=== PATIENT | female | born 1990 | race Caucasian/White ===

== ENCOUNTER 2023-01-10 11:35 | Inpatient (IN) | payer MEDICAID, SELFPAY ==
[2023-01-10 11:37] VITALS: BP 127/90; PULSE 93; RESP 16; TEMP 36.3; O2SAT 100; BMI 25.5
--- NOTE | 2023-01-10 12:02 | RAD_ITS ---
STUDY: X-RAY - LEFT WRIST REASON FOR EXAM: Female, 32 years old. FB TECHNIQUE: 3 view(s) of the wrist were obtained. COMPARISON: None. FINDINGS: Normal visualized distal radius and ulna. Normal radiocarpal articulation. Normal distal radioulnar articulation. Normal carpal bones. Normal carpal articulations. Normal carpometacarpal articulation of the thumb. Normal second through fifth carpometacarpal articulations. Normal visualized metacarpal bones. The soft tissue structures are unremarkable. There is no demonstrated acute fracture. RAD/Wrist min 3 Views IMPRESSION: Normal x-ray examination of the wrist. Electronically Signed: Chaitanya Costello MD at 13:02 EDT ,
--- NOTE | 2023-01-10 12:06 | EDS_ITS ---
HPI History of Present Illness Chief Complaint: Substance Abuse Narrative Narrative: Patient is a 32-year-old female who presenting to the ER wanting detox for opiates/fentanyl. Patient has been on opiates for over 10 years. Patient initially started taking opiates for pain, then it has pursued into recreation and dependence. Patient states that she snorts and injects fentanyl. Last use was yesterday morning. Patient feels like she is going through withdrawal with nausea, bone pain, chills, piloerection, dry heaves and diarrhea. Patient is not suicidal homicidal. Patient lives at home with her parents and daughter who is a 12-year-old. Patient decided that today was the day that she wanted to get clean again. Patient has been to rehab one of the time at [facility]. patient is not in trouble with the law. Patient not suicidal homicidal. Patient states she averages half a gram of fentanyl a day. Patient also has a small abscess to the left medial forearm and also redness and swelling to the left medial wrist. Patient is right-hand dominant. Patient was dropped off in the ER today. She has mild headache, no neck pain. No chest pain or shortness of breath. Positive nausea with dry heaving, positive diarrhea. Patient states that she is not , she is starting her menses right now. Patient has no other rashes or lesions beside the track rob to her arms and the a forementioned left forearm abscess and left wrist redness. Patient denies any illicit drug use. Patient does smoke cigarettes, half a pack if not greater day. No alcohol use. Patient does have hepatitis C. Patient has not had any previous treatment for hepatitis C in the past. [facility] Medical History (Updated 01/10/23 @ 14:[address] Thang Angel DO) Opiate addiction Home Medications NK 01/10/23 [History Last Taken Unknown] Allergy/AdvReac Type Severity Reaction Status Date / Time No Known Allergies Allergy Verified 01/10/23 11:44 Social History Smoking Status: Current every day smoker tobacco type: cigarettes ROS ROS ED ROS Narrative REVIEW OF SYSTEMS: Unless otherwise stated in this report the patient's positive and negative responses for review of systems for constitutional, eyes, ENT, cardiovascular, respiratory, gastrointestinal, neurological, , musculoskeletal, and integument systems and related systems to the presenting problem are either stated in the history of present illness or were not pertinent or were negative for the symptoms and/or complaints related to the presenting medical problem. EXAM Physical Exam Narrative Exam Narrative: Vital signs reviewed and patient is not hypoxic. General: The patient appears well and in no apparent distress. Patient is resting comfortably on cart. Not toxic, lethargic, or listless. Skin: Warm, dry, no pallor noted. There is no rash noted. Patient has a 2.5 x 2 firm nodule/abscess, indurated, not fluctuant to the left medial forearm, approximately 2 cm deep. Mild to moderate tenderness palpation to the area. Patient also has diffuse mild erythema to the medial aspect of left wrist, no palpable abscess, no palpable foreign body. Patient does have mild to moderate pain with flexion and extension abduction abduction of the left wrist. Patient has multiple track rob to her forearms and hands. No other signs of secondary signs of infection. Head: Normocephalic, atraumatic Eye: Normal conjunctiva, no drainage, EOMI. PERRL. Ears, Nose, Mouth, and Throat: oral mucosa is moist. Nares patent. Mouth without vesicles. Cardiovascular: Regular Rate and Rhythm, no murmurs, gallops, or rubs Respiratory: Patient is in no distress, no accessory muscle use, lungs are clear to auscultation, no wheezing, rales or rhonchi Back: non-tender, no CVA tenderness bilaterally to percussion. NO CTLS midline or paraspinal tenderness to palpation. GI: Soft, no tenderness to palpation, no masses appreciated. No rebound, guarding, or rigidity noted. Musculoskeletal: The patient has full range of motion of all extremities and joints with no difficulty. Patient has no motor, no sensory deficits. See skin exam. Neurological: A&O x4, normal speech, no focal neurological deficits. Psychiatric: Cooperative Const Vital Signs: 01/10/23 11:37 Temperature 97.3 F L Temperature Source Temporal Pulse Rate 93 Respiratory Rate 16 Blood Pressure 127/90 H Blood Pressure Mean 102 Pulse Ox 100 Oxygen Delivery Method Room Air MDM MDM MDM Narrative Medical decision making narrative: Patient will be admitted for detox for opiates. Patient only has ecstasy noted in patient's urine drug tox cream. Alcohol negative. Patient potassium was 3.3, she was given oral potassium. Patient's nausea has improved with IV Zofran. Patient has been given 1 L of IV fluid. Patient also been given clonidine and Librium. Patient was given Ancef secondary to left wrist early cellulitis and also left forearm abscess. Patient will be admitted to hospitalist for detox. Patient is not suicidal homicidal. Patient is currently not working. Patient lives at home with her parents and her 12-year-old daughter. Patient does have a history of hepatitis C. Lab Data Attestation: I reviewed the patient's lab results. Labs: Laboratory Results - last 24 hr 01/10/23 01/10/23 12:25 12:40 Sodium 138 Potassium 3.3 L Chloride 107 Carbon Dioxide 27.0 Anion Gap 4 L BUN 13 Creatinine 0.61 Estim Creat Clear Calc 95.10 Est GFR (MDRD) Af Amer 146 Est GFR (MDRD) Non-Af 120 BUN/Creatinine Ratio 21.3 H Glucose 104 Calcium 9.1 Total Bilirubin 0.50 AST 31 ALT 34 Alkaline Phosphatase 125 H Total Protein 8.5 H Albumin 3.7 Globulin 4.8 H Albumin/Globulin Ratio 0.8 L Serum , Qual NEGATIVE Urine Opiates Screen NEGATIVE Urine Methadone Screen NEGATIVE Ur Barbiturates Screen NEGATIVE Ur Phencyclidine Scrn NEGATIVE Ur Amphetamines Screen NEGATIVE MDMA (Ecstasy) Screen POSITIVE H U Benzodiazepines Scrn NEGATIVE Urine Cocaine Screen NEGATIVE U Cannabinoids Screen NEGATIVE Ur Drug Screen Comment Ethyl Alcohol < 3.0 Radiography X-Ray: Read by ED Physician (Patient is left wrist x-ray and left forearm x-ray showed no acute fracture, dislocation or acute abnormality. No foreign body noted. No signs of osteomyelitis. No free air or gas noted) Diagnostic Testing: Clinical Impression(s) from Imaging Studies Wrist X-Ray 01/10/23 12:02 IMPRESSION: Normal x-ray examination of the wrist. Electronically Signed: Chaitanya Costello MD at 13:02 EDT , Forearm X-Ray 01/10/23 12:25 IMPRESSION: Normal x-ray examination of the radius and ulna. Electronically Signed: Chaitanya Costello MD at 13:26 EDT , Discharge Plan Dx/Rx/DC Orders Clinical Impression: Cellulitis of left wrist, Opiate dependence, continuous, Acute pain of left wrist, Abscess of forearm, left, Hypokalemia Disposition Disposition: Acute Care [facility]
--- NOTE | 2023-01-10 12:10 | ED.RN ---
spoke with provider regarding pt being here for fentanyl abuse and the order for IV. this rn has concerns pt will leave with the iv in. provider said to start iv, if she leaves notify security. provider aware that we prefer to not start iv's on opiate abuse. this rn requested oral atb's and provider denied.
--- NOTE | 2023-01-10 12:25 | RAD_ITS ---
STUDY: X-RAY - LEFT RADIUS AND ULNA REASON FOR EXAM: Female, 32 years old. FB TECHNIQUE: 2 view(s) of the forearm. COMPARISON: None. FINDINGS: There is no demonstrated soft tissue swelling. Normal visualized radius. Normal visualized ulna. There is no demonstrated acute fracture. There is no demonstrated destructive osseous lesion. No radiopaque foreign body is seen. RAD/Forearm 2 Views IMPRESSION: Normal x-ray examination of the radius and ulna. Electronically Signed: Chaitanya Costello MD at 13:26 EDT ,
[2023-01-10] MEDS: cloNIDine HCl 0.1 MG Tablet PO ×2 (12:26→17:41)
[2023-01-10] MEDS: 0.9% Normal Saline 1,000 ML 999 ML IV (12:44)
[2023-01-10] MEDS: chlordiazePOXIDE 25 MG Capsule PO (12:45)
[2023-01-10] MEDS: Ondansetron 4 MG/2 ML Vial IV (12:45)
[2023-01-10] MEDS: Cefazolin 1 GM/50 ML BAG IV (12:45)
[2023-01-10 12:59] LABS: Amphetamine Urine VISTA NEGATIVE (<1000 ng/mL); Barbiturate Urine VISTA NEGATIVE (< 200 ng/mL); Benzodiazepine Urine VISTA NEGATIVE (< 200 ng/mL); Cocaine Urine VISTA NEGATIVE (< 300 ng/mL); Ecstacy Urine VISTA POSITIVE (< 500 ng/mL); Methadone Urine VISTA NEGATIVE (< 300 ng/mL); PCP Urine VISTA NEGATIVE (< 25 ng/mL); THC Urine VISTA NEGATIVE (< 50 ng/mL); Vista UDS pH Range 5
[2023-01-10 13:05] LABS: ALB/GLOB Ratio 0.8 RATIO (0.9-2.4); AST(SGOT) 31 U/L (15-37); Alanine Aminotransfer ALT/SGPT 34 U/L (13-56); Albumin, Serum 3.7 g/dL (3.2-5.0); Alkaline Phosphatase 125 U/L (45-117); Anion Gap 4 (5-15); BUN 13 mg/dL (7-18); BUN/Creat Ratio 21.3 RATIO (10-20); Calcium,Total 9.1 mg/dL (8.5-10.1); Chloride 107 mmol/L (98-107); Creatinine, Serum 0.61 mg/dL (0.55-1.02); EST Glomerular Filtration Rate 120 mL/min (>60); Est Glom Filt Rate - Afr Amer 146 mL/min (>60); Globulin 4.8 g/dL (2.2-4.2); Glucose 104 mg/dL (74-106); Potassium 3.3 mmol/L (3.5-5.1); Protein, Total 8.5 g/dL (6.4-8.2); Sodium Level 138 mmol/L (136-145)
[2023-01-10 13:08] LABS: Internal QC Validated? YES +Cl - CLEAR BKGD; Pregnancy, Serum, hCG Quali. NEGATIVE Negative
[2023-01-10 13:13] LABS: Alcohol, Blood (Medical)-Serum < 3.0 mg/dL
[2023-01-10] MEDS: Potassium Chloride Oral Tablet 20 MEQ 40 MEQ PO (14:01)
[2023-01-10 14:02] VITALS: BP 104/60; PULSE 59; RESP 16; TEMP 36.7; O2SAT 99
--- NOTE | 2023-01-10 14:14 | ED.RN ---
THIS RN TALKS TO DR SOUZA. IV TO BE PULLED PRIOR TO ADMISSION UPSTAIRS PER HOSPITAL POLICY AND PHYSICIAN REQUEST.
[2023-01-10 14:45] VITALS: BMI 25.4
[2023-01-10 15:30] VITALS: BP 100/65; PULSE 91; RESP 18; TEMP 36.7; O2SAT 100
[2023-01-10] MEDS: Buprenorphine HCl 2 MG TAB.SUBL SL ×2 (15:42→23:58)
--- NOTE | 2023-01-10 15:47 | PCM.HP.STD ---
HPI - General General Date of Admission: 01/10/23 HPI Narrative TRAV ANDINO, is a 32 F who presents to the hospital requesting detox from fentanyl abuse. She injects and snorts. She initially started using opiates for pain and then it transitioned into abuse. Her last use was yesterday morning, and she uses about a gram a day, and feels like she is already started going through withdrawal with nausea and dry heaves and diarrhea. He has been through detox once before in [place]. She is also noticed abscess formation on her left forearm and her left wrist from injection sites. These were x-rayed in the ER and there does not appear to be foreign bodies present. [facility] Medical History (Updated 01/10/23 @ 14:[address] Thang Angel DO) Opiate addiction Home Medications NK 01/10/23 [History Last Taken Unknown] Allergy/AdvReac Type Severity Reaction Status Date / Time No Known Allergies Allergy Verified 01/10/23 11:44 Family History unable to obtain no significant family history Surgical History unable to obtain no surgical history Social History Smoking Status: Current every day smoker tobacco type: cigarettes ROS Constitutional Constitutional: Reports chills; Denies fatigue, fever(s) or malaise Eyes Eyes: Denies blurry vision ENT HEENT: Denies headache(s) or nasal discharge Cardiovascular Cardiovascular: Denies chest pain, dyspnea on exertion or syncope Respiratory/Chest Respiratory/Chest: Denies cough, shortness of breath at rest or shortness of breath with exertion Gastrointestinal Gastrointestinal: Reports diarrhea and nausea; Denies constipation or vomiting Genitourinary Genitourinary: Denies dysuria Neurologic Neurologic: Denies focal weakness, numbness or tremor(s) Psychiatric Psychiatric: Denies anxiety or depression Vital Signs Vital Signs Vital Signs: 01/10/23 11:37 01/10/23 14:02 01/10/23 15:30 Temperature 97.3 F L 98.0 F 98.1 F Temperature Source Temporal Temporal Temporal Pulse Rate 93 59 L 91 Respiratory Rate 16 16 18 Blood Pressure 127/90 H 104/60 100/65 Blood Pressure Mean 102 74 76 Blood Pressure Source Monitor Blood Pressure Position Semi-Fowlers Blood Pressure Location Left Arm Pulse Ox 100 99 100 Oxygen Delivery Method Room Air Room Air Room Air Weight Weight: 130 lb Body Mass Index (BMI) 25.4 Physical Exam Narrative General: Alert, Oriented x3, Cooperative, restless, diaphoretic HEENT: Atraumatic, PERRLA, EOMI, Normocephalic Oral: Moist Mucosa Neck: Supple, No JVD Lungs: Clear to auscultation, Normal air movement, No rhonchi, No wheeze, No rales Cardiovascular: Regular rate, Regular Rhythm, Normal S1, Normal S2, No murmurs Abdomen: Soft, Non Tender, Non-Distended, No Hepato-splenomegaly Extremities: No edema, Capillary Refill Less than 3 Seconds Skin: Left medial forearm redness, no fluctuance but indurated Musculoskeletal: No Tenderness to Palpation of Joints or Extremities Neurological: Tremor, motor Exam 5/5 strength throughout, Sensory exam intact to light touch and pain Psych/Mental Status: Agitated Results Lab / Micro Data 01/10/23 12:40 Labs: Laboratory Results - last 24 hr 01/10/23 12:25: Urine Opiates Screen NEGATIVE, Urine Methadone Screen NEGATIVE, Ur Barbiturates Screen NEGATIVE, Ur Phencyclidine Scrn NEGATIVE, Ur Amphetamines Screen NEGATIVE, MDMA (Ecstasy) Screen POSITIVE H, U Benzodiazepines Scrn NEGATIVE, Urine Cocaine Screen NEGATIVE, U Cannabinoids Screen NEGATIVE, Ur Drug Screen Comment 01/10/23 12:40: Sodium 138, Potassium 3.3 L, Chloride 107, Carbon Dioxide 27.0, Anion Gap 4 L, BUN 13, Creatinine 0.61, Estim Creat Clear Calc 95.10, Est GFR (MDRD) Af Amer 146, Est GFR (MDRD) Non-Af 120, BUN/Creatinine Ratio 21.3 H, Glucose 104, Calcium 9.1, Total Bilirubin 0.50, AST 31, ALT 34, Alkaline Phosphatase 125 H, Total Protein 8.5 H, Albumin 3.7, Globulin 4.8 H, Albumin/Globulin Ratio 0.8 L, Serum , Qual NEGATIVE, Ethyl Alcohol < 3.0 Radiology Impression Wrist X-Ray 01/10/23 12:02 IMPRESSION: Normal x-ray examination of the wrist. Electronically Signed: Chaitanya Costello MD at 13:02 EDT Reading Location ID and State: [facility] / [place] , Service support , Forearm X-Ray 01/10/23 12:25 IMPRESSION: Normal x-ray examination of the radius and ulna. Electronically Signed: Chaitanya Costello MD at 13:26 EDT , Assessment & Plan Assessment/Plan (1) Abscess of forearm, left: (2) Opiate dependence, continuous: PLAN: Plan 1. Opiate withdrawal/left forearm abscess ? Continue with the opiate withdrawal protocol ? Other follow-up with 180 as an outpatient ? We will transition to doxycycline for the abscess and the localized cellulitis will obtain a wound culture if able DVT: Ambulation Charges/Coding Visit Charges Inpatient E&M: 52095 Init Hosp L2
[2023-01-10] MEDS: hydrOXYzine PAM 25 MG Capsule 50 MG PO (17:41)
[2023-01-10] MEDS: Gabapentin 300 MG Capsule PO (17:41)
[2023-01-10] MEDS: Ondansetron 8 MG Tablet PO (17:41)
[2023-01-10 17:59] VITALS: BP 130/88; PULSE 84; RESP 20; TEMP 36.7; O2SAT 100
[2023-01-10 23:45] VITALS: BP 107/59; PULSE 48; RESP 14; TEMP 36.6; O2SAT 97
[2023-01-10] MEDS: Doxycycline 100 MG CAPSULE PO (23:58)
[2023-01-11] MEDS: traZODone 100 MG Tablet PO
--- NOTE | 2023-01-11 06:51 | PCM.PN.HOSP ---
Reason for Visit Reason for Visit: Diagnoses Opioid dependence, uncomplicated (01/10/23) Cutaneous abscess of left upper limb (01/10/23) Subjective Subjective Patient with no acute events overnight per self and per nursing report. She denies any marked withdrawal symptoms still. Discussed polysubstance abuse and importance of also testing syphilis given this is active in the community and she was amenable. Patient denies any further drainage from her forearm and notes that there has not been some for several days. Patient denies fevers, chills, nausea, emesis, abdominal pain, chest pain or dyspnea. Objective Data Objective Data Vital Signs: Vital Signs Temp Pulse Resp BP Pulse Ox O2 Del Method 98 F 48 L 14 107/59 L 97 Room Air 01/10/23 23:45 01/10/23 23:45 01/10/23 23:45 01/10/23 23:45 01/10/23 23:45 01/11/23 04:00 Oxygen Delivery Method Room Air Weight: 130 lb Body Mass Index (BMI) 25.4 Intake & Output: Intake and Output for Last 24 Hours 01/09/23 01/10/23 01/11/23 23:59 23:59 23:59 Intake Total 1250 / 1350 100 / 100 Balance 1250 / 1350 100 / 100 Lab / Micro Data 01/11/23 10:40 01/11/23 10:40 Labs: Laboratory Results - last 24 hr 01/10/23 12:25: Urine Opiates Screen NEGATIVE, Urine Methadone Screen NEGATIVE, Ur Barbiturates Screen NEGATIVE, Ur Phencyclidine Scrn NEGATIVE, Ur Amphetamines Screen NEGATIVE, MDMA (Ecstasy) Screen POSITIVE H, U Benzodiazepines Scrn NEGATIVE, Urine Cocaine Screen NEGATIVE, U Cannabinoids Screen NEGATIVE, Ur Drug Screen Comment 01/10/23 12:40: Sodium 138, Potassium 3.3 L, Chloride 107, Carbon Dioxide 27.0, Anion Gap 4 L, BUN 13, Creatinine 0.61, Estim Creat Clear Calc 95.10, Est GFR (MDRD) Af Amer 146, Est GFR (MDRD) Non-Af 120, BUN/Creatinine Ratio 21.3 H, Glucose 104, Calcium 9.1, Total Bilirubin 0.50, AST 31, ALT 34, Alkaline Phosphatase 125 H, Total Protein 8.5 H, Albumin 3.7, Globulin 4.8 H, Albumin/Globulin Ratio 0.8 L, Serum , Qual NEGATIVE, Ethyl Alcohol < 3.0 Radiography Diagnostic Testing: Radiology Impression Wrist X-Ray 01/10/23 12:02 IMPRESSION: Normal x-ray examination of the wrist. Electronically Signed: Chaitanya Costello MD at 13:02 EDT Reading Location ID and State: [facility] / [place] , Service support , Forearm X-Ray 01/10/23 12:25 IMPRESSION: Normal x-ray examination of the radius and ulna. Electronically Signed: Chaitanya Costello MD at 13:26 EDT , Physical Exam Narrative Physical Examination: General: Awake, alert, oriented x 3 and cooperative, laying in the medical surgical bed, fatigued otherwise no acute distress. Skin: Normal color, normal turgor, no icterus, no cyanosis except various staged track rob and ecchymotic change to the extremities especially, L forearm with no obvious draining abscess, palpable small nonpainful mobile collection, possibly lipoma. HEENT: AT/NC, EOMI, PERRLA, poor dentition, mildly dry MM. Lungs: Mildly diminished, greater bases, proper effort, no rales, ronchi or wheezing. Heart: Mildly bradycardic with regular rhythm; no gallop, rub audible. Abdomen: Soft, NTTP, ND, mildly hyperactive BS. Extremities: No cyanosis, clubbing, or edema, L forearm with no obvious draining abscess, palpable small nonpainful mobile collection, possibly lipoma.. Neurological: Patient awake, alert, oriented as noted, cognitive function intact; pupils equally reactive to light and accommodation, cranial nerves II-XII grossly normal, moving all 4 extremities, no focal deficits, strength mildly decreased secondary to likely medications. Psychiatric: Affect appears flat, fatigued, no acute evidence of depressive or anxiety feelings. Assessment & Plan Assessment/Plan (1) Opiate withdrawal: PLAN: Plan The patient is a 32 y/o F w/ PMHx: Polysubstance abuse (Opiates, IV and snorted), Tobacco use who presents [facility] ED on 01/10/23 with acute opiate withdrawal. #1. Acute Opiate Withdrawal: Admitted to medical surgical floor, initiated and maintained on protocol with tapering course of Subutex, as needed tylenol, ibuprofen, bowel regimen, gabapentin, Bentyl, Vistaril, methocarbamol, clonidine, PRN nightly trazodone for insomnia, IV fluids, IV antiemetics. Once patient clinically improved and completion of taper nearing will plan consultation with case management for transition to next level of rehabilitation care. #2. Forearm abscess secondary to IV drug abuse: Will maintain on oral doxy, low threshold to add concurrent keflex, evaluation with no obvious drainage at this point and from sensation on evaluation suspect may be a small lipoma present in that region as well, continue affected extremity elevation above heart when seated and in bed, monitor erythema outline with VS checks. #3. Polysubstance Abuse, IVDA Hx: Patient currently not candidate for hep C treatment currently as needs to be clean, sober x 6 months, documented attendance NA or AA meetings, counseling and ongoing negative drug screens. HIV nonreactive, syphilis nonreactive, pending hepatitis panel. #4. Tobacco Abuse: Encouraged cessation, inpatient consultation per RT, NR if desired. #5. Hypokalemia: Admission K+ 3.3, magnesium level 2.1, supplementation given and repeat 01/11/2023 potassium 3.6. #6. DVT prophylaxis: Low risk, encourage ambulation. Charges/Coding Visit Charges Inpatient E&M: 24997 Subs Hosp L2
[2023-01-11 08:00] VITALS: BP 102/64; PULSE 55; RESP 18; TEMP 36.3; O2SAT 97
[2023-01-11] MEDS: Buprenorphine HCl 2 MG TAB.SUBL SL ×3 (08:00→23:00)
[2023-01-11 09:29] LABS: HIV - WCH Non-Reactive (Nonreactive)
[2023-01-11] MEDS: Doxycycline 100 MG CAPSULE PO ×2 (10:15→22:59)
[2023-01-11 10:49] LABS: Absolute Lymphocyte Count 1.48 X10^3/uL (0.83-4.51); Absolute Neutrophil Count 3.4 X10^3/uL (2.0-7.7); Basophil# 0.04 X10^3/uL; Basophil% 0.7 % (0-1); Eosinophil# 0.06 X10^3/uL; Eosinophils% 1.1 % (0-5); Hemoglobin 13.6 g/dL (12.0-15.0); Lymphocyte # 1.48 X10^3/ul (0.83-4.51); Lymphocyte % 27.6 % (19-41); Mean Corp Hgb Conc 33.2 g/dL (32-36); Mean Corpuscular Volume 84.5 fL (81-99); Mean Platelet Vol. 9.8 fl (6.2-12.0); Monocyte# 0.41 X10^3/uL; Monocyte% 7.6 % (0-10); NRBC Flagged by Analyzer 0 % (0-5); Neutrophil # 3.35 X10^3/uL (2.7-7.7); Neutrophil % 62.6 % (47-70); Platelet Count 203 K/mm3 (150-450); RBC Distribution Width CV 12.7 % (11.6-14.6); RBC Distribution Width SD 38.9 fl (35.1-43.9); Red Blood Count 4.85 M/mm3 (4.2-5.4); White Blood Count 5.4 K/mm3 (4.4-11.0)
[2023-01-11 11:36] LABS: Anion Gap 7 (5-15); BUN 12 mg/dL (7-18); BUN/Creat Ratio 22.5 RATIO (10-20); Calcium,Total 8.8 mg/dL (8.5-10.1); Chloride 109 mmol/L (98-107); Creatinine, Serum 0.53 mg/dL (0.55-1.02); EST Glomerular Filtration Rate 140 mL/min (>60); Est Glom Filt Rate - Afr Amer 170 mL/min (>60); Estimated Creatinine Clearance 109.46 ml/min; Glucose 115 mg/dL (74-106); Magnesium 2.1 mg/dL (1.6-2.6); Potassium 3.6 mmol/L (3.5-5.1); Sodium Level 138 mmol/L (136-145); Syphilis Antibodies Non-reactive
--- NOTE | 2023-01-11 11:46 | WOUNDNOTE ---
skin photo: left arm
--- NOTE | 2023-01-11 11:47 | WOUNDNOTE ---
was asked to see patient for abscess to the left arm. patient is a known IV drug user. patient does have a small red, indurated area to the left forearm. there is no surrounding erythema or streaking noted. skin is intact. no need for wound care at this time. see skin photo.
--- NOTE | 2023-01-11 12:00 | ADDICTION ---
This worker met with patient. Pt was feeling unwell. Pt discussed treatment options post d/c. Pt was not interested in any of the options tw listed however it may be due to the way she was feeling. Assessments were completed. Will go back and discuss options further tomorrow.
[2023-01-11 15:00] VITALS: BP 111/67; PULSE 67; RESP 16; TEMP 36.9; O2SAT 97
[2023-01-11 20:08] VITALS: BP 104/65; PULSE 80; RESP 16; TEMP 36.5; O2SAT 97
[2023-01-11 23:04] VITALS: BP 119/79; PULSE 56; RESP 16; TEMP 36.6; O2SAT 98
[2023-01-12 05:55] VITALS: BP 120/72; PULSE 61; RESP 16; TEMP 36.8; O2SAT 98
--- NOTE | 2023-01-12 06:29 | PCM.PN.HOSP ---
Reason for Visit Reason for Visit: Diagnoses Opioid dependence, uncomplicated (01/10/23) Opioid use, unspecified with withdrawal (01/10/23) Cutaneous abscess of left upper limb (01/10/23) Subjective Subjective Patient with no acute events overnight per self and per nursing report. Discussed her current lab reports which included negative syphilis and negative HIV testing but still awaiting hepatitis panel. Patient denies any further marked withdrawal symptoms. Patient denies fevers, chills, nausea, emesis, abdominal pain, chest pain or dyspnea. Objective Data Objective Data Vital Signs: Vital Signs Temp Pulse Resp BP Pulse Ox O2 Del Method 98.2 F 61 16 120/72 98 Room Air 01/12/23 05:55 01/12/23 05:55 01/12/23 05:55 01/12/23 05:55 01/12/23 05:55 01/12/23 05:55 Oxygen Delivery Method Room Air Weight: 130 lb Body Mass Index (BMI) 25.4 Intake & Output: Intake and Output for Last 24 Hours 01/10/23 01/11/23 01/12/23 23:59 23:59 23:59 Intake Total 1250 / 1350 100 / 300 400 / 400 Balance 1250 / 1350 100 / 300 400 / 400 Lab / Micro Data 01/11/23 10:40 01/11/23 10:40 Labs: Laboratory Results - last 24 hr 01/10/23 21:16: HIV 1&2 Antibody Non-Reactive 01/11/23 10:40: WBC 5.4, RBC 4.85, Hgb 13.6, Hct 41.0, MCV 84.5, MCH 28.0, MCHC 33.2, RDW Std Deviation 38.9, RDW Coeff of Josie 12.7, Plt Count 203, MPV 9.8, Immature Gran % (Auto) 0.400, Neut % (Auto) 62.6, Lymph % (Auto) 27.6, Jennings % (Auto) 7.6, Eos % (Auto) 1.1, Baso % (Auto) 0.7, Absolute Neuts (auto) 3.4, Absolute Lymphs (auto) 1.48, Nucleated RBC % 0, Sodium 138, Potassium 3.6, Chloride 109 H, Carbon Dioxide 22.0, Anion Gap 7, BUN 12, Creatinine 0.53 L, Estim Creat Clear Calc 109.46, Est GFR (MDRD) Af Amer 170, Est GFR (MDRD) Non-Af 140, BUN/Creatinine Ratio 22.5 H, Glucose 115 H, Calcium 8.8, Magnesium 2.1, Syphilis Total Ab Non-reactive Physical Exam Narrative Physical Examination: General: Awake, alert, oriented x 3 and cooperative, laying in the medical surgical bed, laying on her side, fatigued, no withdrawal complaints. Skin: Normal color, normal turgor, no icterus, no cyanosis except various staged track rob and ecchymotic change primarily to extremities, L forearm with no obvious draining abscess, palpable small nonpainful mobile collection, possibly lipoma. HEENT: AT/NC, EOMI, PERRLA, poor dentition, MMM. Lungs: Mildly diminished, greater bases, proper effort, no rales, ronchi or wheezing. Heart: Bradycardic with regular rhythm; no gallop, rub audible. Abdomen: Soft, NTTP, ND, normal BS. Extremities: No cyanosis, clubbing, or edema, L forearm with no obvious draining abscess, palpable small nonpainful mobile collection, possibly lipoma. Neurological: Patient awake, alert, oriented as noted, cognitive function intact; pupils equally reactive to light and accommodation, cranial nerves grossly normal, moving all 4 extremities, no focal deficits, strength normalizing aside from fatigue secondary to likely medications. Psychiatric: Affect appears flat, fatigued likely secondary medications, no acute evidence of depressive or anxiety feelings. Assessment & Plan Assessment/Plan (1) Opiate withdrawal: PLAN: Plan The patient is a 32 y/o F w/ PMHx: Polysubstance abuse (Opiates, IV and snorted), Tobacco use who presents to the [facility] ED on 01/10/23 with acute opiate withdrawal. #1. Acute Opiate Withdrawal: Admitted to medical surgical floor, initiated and maintained on protocol with tapering course of Subutex, as needed tylenol, ibuprofen, bowel regimen, gabapentin, Bentyl, Vistaril, methocarbamol, clonidine, PRN nightly trazodone for insomnia, IV fluids, IV antiemetics. Once patient clinically improved and completion of taper nearing will plan consultation with case management for transition to next level of rehabilitation care. Currently patient clinically stable with no obvious withdrawal symptoms. #2. Forearm abscess secondary to IV drug abuse: Will maintain on oral doxy and given appearance will plan 5 day duration of treatment only (completion abx therapy 01/15/23), evaluation with no obvious drainage at this point and from sensation on evaluation suspect may be a small lipoma present in that region as well. #3. Polysubstance Abuse, IVDA Hx: Patient currently not candidate for hep C treatment currently as needs to be clean, sober x 6 months, documented attendance NA or AA meetings, counseling and ongoing negative drug screens. HIV nonreactive, syphilis nonreactive, pending hepatitis panel. #4. Tobacco Abuse: Encouraged cessation, inpatient consultation per RT, NR if desired. #5. Hypokalemia: Admission K+ 3.3, magnesium level 2.1, supplementation given and repeat 01/11/2023 potassium 3.6. #6. DVT prophylaxis: Low risk, encourage ambulation. Charges/Coding Visit Charges Inpatient E&M: 32055 Subs Hosp L2
[2023-01-12] MEDS: Buprenorphine HCl 2 MG TAB.SUBL SL ×2 (06:45→15:05)
[2023-01-12 09:38] VITALS: BP 121/72; PULSE 50; RESP 16; TEMP 36.7; O2SAT 98
[2023-01-12] MEDS: Doxycycline 100 MG CAPSULE PO ×2 (09:47→22:06)
[2023-01-12 16:09] VITALS: BP 110/78; PULSE 84; RESP 16; TEMP 36.8; O2SAT 98
[2023-01-12 22:00] VITALS: BP 113/71; PULSE 86; RESP 16; TEMP 36.8; O2SAT 99
[2023-01-12] MEDS: traZODone 100 MG Tablet PO (22:06)
[2023-01-13 04:00] VITALS: BP 97/60; PULSE 68; RESP 16; TEMP 36.6; O2SAT 96
[2023-01-13] MEDS: Buprenorphine HCl 2 MG TAB.SUBL SL (04:02)
--- NOTE | 2023-01-13 06:21 | PN.HOSP_ITS ---
Reason for Visit Reason for Visit: Diagnoses Opioid dependence, uncomplicated (01/10/23) Opioid use, unspecified with withdrawal (01/10/23) Cutaneous abscess of left upper limb (01/10/23) Subjective Subjective Patient with no acute events overnight per self and per nursing report. She has no further withdrawal symptoms. Her forearm erythema and previous drainage have completely resolved. She is remained afebrile. Discussed importance of follow- up and she is eager to establish and plans to follow-up with Isabel Post at the [facility]. Discussed that her hepatitis panel is still pending and these will be followed up at her primary care visit. Given her last dose was at 4 AM this morning of her withdrawal taper protocol plan discharge to home this AM. Patient denies fevers, chills, nausea, emesis, abdominal pain, chest pain or dyspnea. Objective Data Objective Data Vital Signs: Vital Signs Temp Pulse Resp BP Pulse Ox O2 Del Method 98 F 68 16 97/60 96 Room Air 01/13/23 04:00 01/13/23 04:00 01/13/23 04:00 01/13/23 04:00 01/13/23 04:00 01/13/23 04:00 Oxygen Delivery Method Room Air Weight: 130 lb Body Mass Index (BMI) 25.4 Intake & Output: Intake and Output for Last 24 Hours 01/11/23 01/12/23 01/13/23 23:59 23:59 23:59 Intake Total 100 / 300 400 / 400 Balance 100 / 300 400 / 400 Lab / Micro Data 01/11/23 10:40 01/11/23 10:40 Physical Exam Narrative Physical Examination: General: Awake, alert, oriented x 3 and cooperative, laying in the medical surgical bed, more awake and alert this morning, eager for discharge. Skin: Normal color, normal turgor, no icterus, no cyanosis except various staged track rob and ecchymotic change primarily to extremities, L forearm with no obvious draining abscess, palpable small nonpainful mobile collection, possibly lipoma. HEENT: AT/NC, EOMI, PERRLA, poor dentition, MMM. Lungs: Mildly diminished, greater bases, proper effort, no rales, ronchi or wheezing. Heart: Bradycardic with regular rhythm; no gallop, rub audible. Abdomen: Soft, NTTP, ND, normal BS. Extremities: No cyanosis, clubbing, or edema, L forearm with no obvious draining abscess, palpable small nonpainful mobile collection, possibly lipoma. Neurological: Patient awake, alert, oriented as noted, cognitive function intact; pupils equally reactive to light and accommodation, cranial nerves grossly normal, moving all 4 extremities, no focal deficits, strength preserved. Psychiatric: Affect appears more interactive, more awake, no acute evidence of depressive or anxiety feelings. Assessment & Plan Assessment/Plan (1) Opiate withdrawal: PLAN: Plan The patient is a 32 y/o F w/ PMHx: Polysubstance abuse (Opiates, IV and sn orted), Tobacco use who presents to the [facility] ED on 01/10/23 with acute opiate withdrawal. #1. Acute Opiate Withdrawal: Admitted to medical surgical floor, initiated and maintained on protocol with tapering course of Subutex with completion 01/13/2023 early a.m., as needed tylenol, ibuprofen, bowel regimen, gabapentin, Bentyl, Vistaril, methocarbamol, clonidine, PRN nightly trazodone for insomnia, IV fluids, IV antiemetics. Case management and substance abuse counseling involved. Discussed at length establishing with PCP and patient notes intention to follow-up with Isabel Post at the [place] [facility]. #2. Forearm abscess secondary to IV drug abuse: Maintained on oral doxy and given appearance will plan 5 day duration of treatment only (completion abx therapy 01/15/23), evaluation with no obvious drainage at this point and from sensation on evaluation suspect may be a small lipoma present in that region as well. Patient given 2 additional days of antibiotic therapy at discharge. #3. Polysubstance Abuse, IVDA Hx: Patient currently not candidate for hep C treatment currently as needs to be clean, sober x 6 months, documented attendance NA or AA meetings, counseling and ongoing negative drug screens. HIV nonreactive, syphilis nonreactive, pending hepatitis panel which was discussed and noted that this would be followed up at her primary care visit. #4. Tobacco Abuse: Encouraged cessation, inpatient consultation per RT, NR if desired. #5. Hypokalemia: Admission K+ 3.3, magnesium level 2.1, supplementation given and repeat 01/11/2023 potassium 3.6. #6. DVT prophylaxis: Low risk, encourage ambulation. Charges/Coding Visit Charges Inpatient E&M: 42040 Subs Hosp L2
[2023-01-13 08:42] VITALS: BP 94/56; PULSE 61; RESP 16; TEMP 36.6; O2SAT 97
--- NOTE | 2023-01-13 09:51 | PCM.DC ---
Discharge Instructions Diet Discharge Diet: No restrictions Activity Discharge Activity: Return to Normal Activity May resume sexual activity in: - (You are still awaiting your hepatitis panel to return thus avoid unprotected sexual activity until this has resulted reviewed outpatient.) Weight Bearing Status: Weight bearing as tolerated Dressing / Incision Call your doctor if you observe: Fever of 101 or Higher, Numbness or Tingling, Shortness of breath, Dizziness, Increased palpitations (irregular heartbeat), Calf discomfort, Uncontrolled pain and - (Extremity redness or abscess formation recurrence.) Follow Up Care Test Results: Test results from this visit will be discussed in further detail at your follow-up appointment, if applicable. Discharge Plan Admission Admit Date/Time: 01/10/23 13:57 Primary Reason for Your Visit: Opiate withdrawal treatment, IVDA, Forearm abscess Attending Provider: Kourtney Gutierrez Primary Care Provider: Care Physician,No Primary Consulting Providers: Adrián Ingram Instructions Patient Instructions: Substance Abuse Rehab Program, Cellulitis, Abscess Drainage, ED Drug Abuse Additional Instructions / Restrictions: ADDITIONAL DISCHARGE INFORMATION: Upon discharge your hepatitis panel is still pending. Please review these results at your follow-up at the [facility]. Your syphilis and HIV testing were both nonreactive. Please complete the antibiotic therapy rx upon discharge. Please follow-up with 180 as arranged for continued substance abuse interventions and care. Discharge Orders/Prescriptions Prescriptions: New doxycycline monohydrate 100 mg Capsule 100 mg PO BID 3 Days Qty: 6 0RF Referrals / Follow Up: Isabel Post NP, ENERGY OPERATIONS VICE PRESIDENT-C [Non-Staff -Ordering Privileges] - (Please follow-up at the [facility] with Isabel Post to establish at first open visit.) Disposition Disposition (needs filled in before D/C Order can be placed): Home, Self Care
--- NOTE | 2023-01-13 09:53 | PCM.DC.SUM ---
Providers Date of Admission: 01/10/23 Date of Discharge: 01/13/23 Primary Care Physician: No Primary Care Phys Consultations 01/11/23 08:16 Consult: Onc/Wound/diazo technician Routine Comment: Reason for Consult:: forearm abscess Reason For Visit: DETOX Diagnosis Discharge Diagnosis (1) Opiate withdrawal: Status: Acute Code(s): F11.93 - Opioid use, unspecified with withdrawal Plan: Discharge Diagnoses: #1. Acute Opiate Withdrawal with polysubstance abuse #2. Forearm abscess secondary to IV drug abuse #3. Polysubstance Abuse, IVDA Hx #4. Tobacco Abuse #5. Hypokalemia Medications at Discharge Home Medications doxycycline monohydrate 100 mg capsule 100 mg PO BID 3 days #6 caps 01/13/23 Hospital Course Operations None Procedures None Summary of Care Provided Minutes Spent on Discharge: 35 Hospital Course: The patient is a 32 y/o F w/ PMHx: Polysubstance abuse (Opiates, IV and snorted), Tobacco use who presents to the [facility] ED on 01/10/23 with acute opiate withdrawal. Admitted to medical surgical floor, initiated and maintained on protocol with tapering course of Subutex with completion 01/13/2023 early a.m., as needed tylenol, ibuprofen, bowel regimen, gabapentin, Bentyl, Vistaril, methocarbamol, clonidine, PRN nightly trazodone for insomnia, IV fluids, IV antiemetics. Case management and substance abuse counseling involved. Discussed at length establishing with PCP and patient notes intention to follow-up with Isabel Post at the [place] [facility]. Patient with upon ED evaluation noted mild cellulitis and draining abscess to her left forearm. She was maintained on oral doxy and given appearance will plan 5 day duration of treatment only (completion abx therapy 01/15/23) and her evaluation demonstrated no obvious drainage with resolution of prior reported cellulitis and suspected concurrent small lipoma present in that region as well. Patient at discharge was given 2 additional days of antibiotic therapy. HIV nonreactive, syphilis nonreactive, pending hepatitis panel which was discussed and noted that this would be followed up at her primary care visit. Patient discharged in stable condition with recommended PCP visit at next open visit to establish. Weight / BMI Weight Weight: 130 lb Body Mass Index (BMI) 25.4 ABG / Lab / Microbiology Data 01/11/23 10:40 01/11/23 10:40 D/C Instructions Discharge Diet: No restrictions May resume sexual activity in: - (You are still awaiting your hepatitis panel to return thus avoid unprotected sexual activity until this has resulted reviewed outpatient.) Weight Bearing Status: Weight bearing as tolerated Call your doctor if you observe: Fever of 101 or Higher, Numbness or Tingling, Shortness of breath, Dizziness, Increased palpitations (irregular heartbeat), Calf discomfort, Uncontrolled pain and - (Extremity redness or abscess formation recurrence.) Meaningful Use Info Meaningful Use Diagnoses (Choose all that apply): None applicable Discharge Plan Admission Admit Date/Time: 01/10/23 13:57 Primary Reason for Your Visit: Opiate withdrawal treatment, IVDA, Forearm abscess Attending Provider: Kourtney Gutierrez Primary Care Provider: Care Physician,No Primary Consulting Providers: Adrián Ingram Instructions Patient Instructions: Substance Abuse Rehab Program, Cellulitis, Abscess Drainage, ED Drug Abuse Additional Instructions / Restrictions: ADDITIONAL DISCHARGE INFORMATION: Upon discharge your hepatitis panel is still pending. Please review these results at your follow-up at the [facility]. Your syphilis and HIV testing were both nonreactive. Please complete the antibiotic therapy rx upon discharge. Please follow-up with 180 as arranged for continued substance abuse interventions and care. Discharge Orders/Prescriptions Prescriptions: New doxycycline monohydrate 100 mg Capsule 100 mg PO BID 3 Days Qty: 6 0RF Referrals / Follow Up: Isabel Post NP, BIOLOGY SPECIALIST-C [Non-Staff -Ordering Privileges] - (Please follow-up at the [facility] with Isabel Post to establish at first open visit.) Disposition Disposition (needs filled in before D/C Order can be placed): Home, Self Care Charges/Coding Visit Charges Inpatient E&M: 47666 Disch Hosp >30min
[2023-01-13] MEDS: Doxycycline 100 MG CAPSULE PO (10:06)
== END 2023-01-13 10:08 | disposition home or self-care (01) | DRG 773 ==
LOC: ED 13:13 → MS3 14:03
PROVIDERS: Admitting Provider Family Medicine; Emergency Provider Emergency Medicine; Visit Provider Family Medicine
DX: F11.23 Opioid dependence with withdrawal (principal); E87.6 Hypokalemia; F17.210 Nicotine dependence, cigarettes, uncomplicated; L02.414 Cutaneous abscess of left upper limb; L03.114 Cellulitis of left upper limb
CPT/HCPCS: 36415; 73090; 73110; 80048; 80053; 80074; 80307; 82077; 83735; 84703; 85025; 86703; 86780; 99284; 99406; J7030; J2405